=== PATIENT | female | born 1995 | race Native Hawaiian/Other Pacific Islander ===

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

== ENCOUNTER 2017-07-21 12:04 | Emergency (ER) | payer OTHER ==
[~2017-07-21] VITALS: Ht 165.1 cm; Wt 99.8 kg
[2017-07-21] MEDS ORDERED: OB COMPLET1 OR (12:33)
[2017-07-21 13:15] VITALS: BP 156/83; TEMP 97.8
== END 2017-07-21 13:15 | disposition short-term general hospital (02) ==
LOC: ED 12:04
DX: O60.03 Preterm labor without delivery, third trimester (principal); Z3A.32 32 weeks gestation of pregnancy
CPT/HCPCS: 36415; 96360; 99284

== ENCOUNTER 2017-07-21 13:18 | Outpatient (CLI) | payer OTHER ==
[~2017-07-21 13:18] MED LIST changes: +OB COMPLET1 OR
== END 2017-07-21 13:52 | disposition short-term general hospital (02) ==
LOC: AMB 13:18
DX: O60.03 Preterm labor without delivery, third trimester (principal); Z3A.32 32 weeks gestation of pregnancy
CPT/HCPCS: A0425; A0429

== ENCOUNTER 2018-05-09 06:23 | Outpatient (CLI) | payer OTHER | END 2018-05-09 06:35 | disposition short-term general hospital (02) | LOC: AMB 06:23 | DX: R06.09 Other forms of dyspnea (principal); R11.2 Nausea with vomiting, unspecified | CPT/HCPCS: A0425; A0427 ==

== ENCOUNTER 2018-05-09 06:41 | Emergency (ER) | payer OTHER ==
[~2018-05-09] VITALS: Ht 165.1 cm; Wt 63.5 kg
[2018-05-09 06:41] VITALS: TEMP 97.8
[2018-05-09 07:30] LABS: PLATELET COUNT 476 K/uL (152-353)
[2018-05-09 09:01] LABS: POTASSIUM 3.6 mmol/L (3.6-5.2)
[2018-05-09 12:30] VITALS: BP 147/93
== END 2018-05-09 12:30 | disposition short-term general hospital (02) ==
LOC: ED 06:41
PROVIDERS: Allergy & Immunology
DX: E11.10 Type 2 diabetes mellitus with ketoacidosis without coma (principal); Z91.14 Patient's other noncompliance with medication regimen
CPT/HCPCS: 80053; 81000; 81002; 82805; 85027; 87502; 87651; 93005; 99284; J1815; J2405; J3490

== ENCOUNTER 2018-05-09 12:52 | Outpatient (CLI) | payer OTHER | END 2018-05-09 14:15 | disposition short-term general hospital (02) | LOC: AMB 12:52 | DX: E11.10 Type 2 diabetes mellitus with ketoacidosis without coma (principal); Z91.14 Patient's other noncompliance with medication regimen | CPT/HCPCS: A0425; A0427 ==

== ENCOUNTER 2021-02-27 10:29 | Emergency (ER) | payer OTHER ==
[~2021-02-27] VITALS: Ht 165.1 cm; Wt 59.0 kg
[2021-02-27 10:34] VITALS: TEMP 99.2
[2021-02-27 11:14] LABS: PLATELET COUNT 449 K/uL (152-353)
[2021-02-27 11:56] LABS: POTASSIUM 4.9 mmol/L (3.6-5.2)
[2021-02-27 12:00] VITALS: BP 113/83
== END 2021-02-27 12:15 | disposition home or self-care (01) ==
LOC: ED 10:29
PROVIDERS: Emergency Medicine Emergency Medical Services
DX: R11.2 Nausea with vomiting, unspecified (principal); E11.65 Type 2 diabetes mellitus with hyperglycemia
CPT/HCPCS: 36415; 80053; 81000; 81002; 85027; 96360; 96375; 99284; J2405

== ENCOUNTER 2021-03-24 21:52 | Emergency (ER) | payer OTHER ==
[~2021-03-24] VITALS: Ht 165.1 cm; Wt 60.3 kg
[2021-03-24 23:08] VITALS: BP 126/78; TEMP 98.1
== END 2021-03-24 23:08 | disposition home or self-care (01) ==
LOC: ED 21:52
DX: R60.0 Localized edema (principal); E11.40 Type 2 diabetes mellitus with diabetic neuropathy, unspecified
CPT/HCPCS: 96372; 99282; 99283; J1940

== ENCOUNTER 2021-04-10 20:48 | Emergency (ER) | payer OTHER ==
[~2021-04-10] VITALS: Ht 165.1 cm; Wt 60.3 kg
[2021-04-10 20:48] VITALS: BP 118/81; TEMP 97.2
[2021-04-10 21:23] LABS: PLATELET COUNT 432 K/uL (152-353)
[2021-04-10 21:53] LABS: POTASSIUM 3.6 mmol/L (3.6-5.2)
== END 2021-04-10 22:09 | disposition still patient (30) ==
LOC: ED 20:48
PROVIDERS: Hospitalist
DX: N92.0 Excessive and frequent menstruation with regular cycle (principal); E10.65 Type 1 diabetes mellitus with hyperglycemia
CPT/HCPCS: 36415; 80053; 80307; 80320; 81000; 81025; 83690; 85027; 96360; 96375; 99284; J1815; J2405

== ENCOUNTER 2021-07-06 02:46 | Emergency (ER) | payer OTHER ==
[~2021-07-06] VITALS: Ht 165.1 cm; Wt 66.2 kg
[2021-07-06 03:22] LABS: PLATELET COUNT 391 K/uL (152-353)
[2021-07-06 03:31] LABS: POTASSIUM 3.1 mmol/L (3.6-5.2)
[2021-07-06 05:05] VITALS: BP 107/61; TEMP 97.9
== END 2021-07-06 05:10 | disposition home or self-care (01) ==
LOC: ED 02:46
PROVIDERS: Emergency Medicine
DX: R11.2 Nausea with vomiting, unspecified (principal); E87.6 Hypokalemia; N39.0 Urinary tract infection, site not specified
CPT/HCPCS: 36415; 36600; 80053; 80307; 81000; 82150; 82805; 83690; 85027; 87077; 87086; 87088; 87186; 96361; 96365; 96372; 96375; 99284; J0696; J2175; J2405

== ENCOUNTER 2021-10-09 08:23 | Emergency (ER) | payer OTHER ==
[~2021-10-09] VITALS: Ht 165.1 cm; Wt 66.2 kg
[2021-10-09 09:30] VITALS: BP 131/79; TEMP 97.4
== END 2021-10-09 09:30 | disposition home or self-care (01) ==
LOC: ED 08:23
DX: K04.7 Periapical abscess without sinus (principal)
CPT/HCPCS: 96372; 99283; J0696; J1885; J2405

== ENCOUNTER 2022-03-25 17:58 | Emergency (ER) | payer OTHER ==
[~2022-03-25] VITALS: Ht 165.1 cm; Wt 74.8 kg
[2022-03-25 18:05] VITALS: BP 130/79; TEMP 97.6
== END 2022-03-25 19:46 | disposition home or self-care (01) ==
LOC: ED 17:58
PROC: 2W3MXYZ Immobilization of Left Lower Extremity using Other Device (ICD-10-PCS; principal; 2022-03-25)
DX: M23.8X2 Other internal derangements of left knee (principal)
CPT/HCPCS: 81025; 96372; 99283; J2270; J2550

== ENCOUNTER 2022-11-10 07:49 | Emergency (ER) | payer OTHER ==
[~2022-11-10] VITALS: Ht 165.1 cm; Wt 66.2 kg
[2022-11-10 08:08] VITALS: BP 122/76; TEMP 98.2
== END 2022-11-10 08:08 | disposition home or self-care (01) ==
LOC: ED 07:49
DX: L02.212 Cutaneous abscess of back [any part, except buttock and flank] (principal); L03.818 Cellulitis of other sites
CPT/HCPCS: 99282

== ENCOUNTER 2022-11-13 16:44 | Emergency (ER) | payer OTHER ==
[~2022-11-13] VITALS: Ht 165.1 cm; Wt 66.2 kg
[2022-11-13 16:46] VITALS: BP 123/76; TEMP 97.3
[2022-11-13 18:32] LABS: PLATELET COUNT 521 K/uL (152-353)
[2022-11-13 18:40] LABS: POTASSIUM 2.6 mmol/L (3.6-5.2)
== END 2022-11-13 19:23 | disposition home or self-care (01) ==
LOC: ED 16:44
PROVIDERS: Family Medicine
PROC: 0H96XZZ Drainage of Back Skin, External Approach (ICD-10-PCS; principal; 2022-11-13)
DX: L02.212 Cutaneous abscess of back [any part, except buttock and flank] (principal); L03.312 Cellulitis of back [any part except buttock and flank]
CPT/HCPCS: 80053; 81002; 81025; 83605; 85027; 87070; 87077; 87185; 87186; 87205; 99283; J2001